=== PATIENT | male | born 1980 | race Caucasian/White ===

== ENCOUNTER 2019-05-22 11:55 | Emergency (ER) | payer SELFPAY ==
[~2019-05-22] VITALS: Ht 180.3 cm; Wt 90.1 kg
--- NOTE | 2019-05-22 12:24 | NUR ---
PT TO ROOM FROM LOBBY
[2019-05-22 12:40] VITALS: BP 144/77
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
--- NOTE | 2019-05-22 12:58 | NUR ---
PT TO IMAGING VIA [facility] AT THIS TIME.
--- NOTE | 2019-05-22 13:16 | NUR ---
Received report from GERMAN Perkins. All questions answered. Assuming care of pt at this time.
--- NOTE | 2019-05-22 14:33 | NUR ---
Patient given discharge instructions and they have confirmed that they understand the instructions. Patient ambulatory with steady gait. Pt left with all personal belongings and d/c paperwork. BRIAN.
== END 2019-05-22 14:29 | disposition home or self-care (01) ==
LOC: ED 14:24
DX: S29.012A Strain of muscle and tendon of back wall of thorax, initial encounter (principal); S16.1XXA Strain of muscle, fascia and tendon at neck level, initial encounter; V59.49XA Driver of pick-up truck or van injured in collision with other motor vehicles in traffic accident, initial encounter; Y93.89 Activity, other specified; Y92.89 Other specified places as the place of occurrence of the external cause; Y99.8 Other external cause status
CPT/HCPCS: 72020; 72050; 72072; 99283